=== PATIENT | male | born 1945 ===

== ENCOUNTER → 2019-03-08 | Outpatient (CLI) | payer MEDICARE ==
--- NOTE | 2019-03-08 16:20 | RAD ---
EXAM: CT OF THE CHEST AND ABDOMEN WITHOUT CONTRAST. HISTORY: Chest and upper abdominal pain. TECHNIQUE: Computed tomography of the chest and abdomen was performed without intravenous contrast. One or more of the following individualized dose reduction techniques were utilized for this examination: 1. Automated exposure control. 2. Adjustment of the mA and/or kV according to patient size. 3. Use of iterative reconstruction technique. COMPARISON: None. FINDINGS: Bone windows reveal no suspicious lesions. There is a hemangioma within the right aspect of the L3 vertebral body. There is and asymmetric soft tissue density in the left subareolar region without a clear discrete mass. There are no pathologically enlarged mediastinal or axillary lymph nodes. There is no pleural or pericardial effusion. The heart is not enlarged. There are dense atherosclerotic calcifications of the coronary arteries. A nodule in the right middle lobe is partially calcified and is likely secondary to old granulomatous disease. It measures 8 mm. A tiny nodule in the right lower lobe is uncalcified and measures <4 mm. Another in the left lower lobe measures 4 mm on image 39. There is mild dependent atelectasis. The gallbladder is surgically absent. There are calcified granulomas in the spleen. Pancreatic parenchymal calcifications of the uncinate process are consistent with chronic pancreatitis. No ductal dilatation or solid pancreatic lesion is seen. Both kidneys are moderately to severely atrophic and contain small cysts. 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 Moderate umbilical and supraumbilical hernias contain only fat. There is no small bowel obstruction. There are diffuse aortic atherosclerotic calcifications without aneurysm. There are no pathologically enlarged lymph nodes. IMPRESSION: 1. No cause for acute pain is identified. 2. Findings suggesting chronic pancreatitis of the uncinate process. 3. Bilateral moderate to severe renal atrophy. 4. Moderate umbilical and supraumbilical hernias contain only fat. 5. Small pulmonary nodules are either calcified or measuring 4 mm or less. These are likely benign and require no further follow-up in the absence of strong risk factors. If there are strong risk factors and long-term stability is not already known, follow-up could be considered in one year. 6. Parenchymal density in the left subareolar breast most likely reflects asymmetric moderate gynecomastia. Correlate with physical examination to determine clinical significance. Electronically signed by: Earnestine Garcia MD (03/08/2019 4:17 PM) [facility]
== END | disposition home or self-care (01) ==
LOC: CT 09:40
PROVIDERS: ATTEND Nurse Practitioner Gerontology
DX: K42.9 Umbilical hernia without obstruction or gangrene (principal); R91.8 Other nonspecific abnormal finding of lung field; I25.10 Atherosclerotic heart disease of native coronary artery without angina pectoris; D71 Functional disorders of polymorphonuclear neutrophils; J98.11 Atelectasis; N26.1 Atrophy of kidney (terminal)
CPT/HCPCS: 71250; 74150